=== PATIENT | female | born 1950 | race Caucasian/White ===

== ENCOUNTER 2024-08-03 01:15 | Emergency (ER) | payer MEDICARE, SELFPAY ==
[2024-08-03] VITALS (10 sets, daily range): BP systolic 141–163; BP diastolic 68–82; PULSE 75–89; RESP 16–18; TEMP 36.7–36.9; O2SAT 92–99; BMI 31.3; BMI 33.3
--- NOTE | 2024-08-03 01:17 | CT_ITS ---
PROCEDURE INFORMATION: Exam: CT Head Without Contrast Exam date and time: 08/03/2024 1:31 AM Age: 74 years old Clinical indication: Injury or trauma; Additional info: Fall TECHNIQUE: Imaging protocol: Computed tomography of the head without contrast. Radiation optimization: All CT scans at this facility use at least one of these dose optimization techniques: automated exposure control; mA and/or kV adjustment per patient size (includes targeted exams where dose is matched to clinical indication); or iterative reconstruction. COMPARISON: No relevant prior studies available. FINDINGS: Brain: Moderate chronic brain volume loss and chronic small vessel ischemic changes. Cerebral ventricles: No ventriculomegaly. Paranasal sinuses: Visualized sinuses are unremarkable. No fluid levels. Mastoid air cells: Visualized mastoid air cells are well aerated. Orbital cavities: Status post bilateral cataract surgery. Bones: Unremarkable. No acute fracture. Soft tissues: Unremarkable. IMPRESSION: No acute intracranial findings.
--- NOTE | 2024-08-03 01:25 | CT_ITS ---
PROCEDURE INFORMATION: Exam: CT Cervical Spine Without Contrast Exam date and time: 08/03/2024 1:33 AM Age: 74 years old Clinical indication: Injury or trauma; Additional info: Trauma, critical injury suspected TECHNIQUE: Imaging protocol: Computed tomography of the cervical spine without contrast. Radiation optimization: All CT scans at this facility use at least one of these dose optimization techniques: automated exposure control; mA and/or kV adjustment per patient size (includes targeted exams where dose is matched to clinical indication); or iterative reconstruction. COMPARISON: CT CERVICAL SPINE WO CON 03/08/2024 01:33 FINDINGS: Bones: Straightening of the curvature of the cervical spine is likely positional. Moderate bilateral neural foraminal stenosis at C6-C7. Moderate left neural foraminal stenosis at C4-C5. Patient motion artifact limits evaluation for nondisplaced fractures. Multilevel degenerative changes of the cervical spine producing multiple levels of mild spinal canal stenosis. Salivary glands: Left parotid gland calcifications. Lungs: Lung apices are normal. Soft tissues: Unremarkable. IMPRESSION: Patient motion artifact limits evaluation for nondisplaced fractures. Within the limitations of the study, no acute fracture or malalignment the cervical spine.
--- NOTE | 2024-08-03 01:25 | XR_ITS ---
PROCEDURE INFORMATION: Exam: XR Chest Exam date and time: 08/03/2024 1:39 AM Age: 74 years old Clinical indication: Injury or trauma; Fall; Blunt trauma (contusions or hematomas) TECHNIQUE: Imaging protocol: Radiologic exam of the chest. Views: 1 view. COMPARISON: CT THORACIC SPINE WO CON 03/08/2024 01:35 FINDINGS: Lungs: Mild scarring and atelectasis in the lower lungs. Pleural spaces: Unremarkable. No pleural effusion. No pneumothorax. Heart/Mediastinum: Unremarkable. No cardiomegaly. Bones/joints: Unremarkable. IMPRESSION: No acute intrathoracic organ injury.
--- NOTE | 2024-08-03 01:25 | CT_ITS ---
PROCEDURE INFORMATION: Exam: CT Thoracic Spine Without Contrast Exam date and time: 08/03/2024 1:35 AM Age: 74 years old Clinical indication: Injury or trauma; Additional info: Trauma, critical injury suspected TECHNIQUE: Imaging protocol: Computed tomography of the thoracic spine without contrast. Radiation optimization: All CT scans at this facility use at least one of these dose optimization techniques: automated exposure control; mA and/or kV adjustment per patient size (includes targeted exams where dose is matched to clinical indication); or iterative reconstruction. COMPARISON: CT CERVICAL SPINE WO CON 03/08/2024 01:33 FINDINGS: Bones/joints: Old right 1st rib fracture. Soft tissues: Unremarkable. Vasculature: The aorta demonstrates moderate to severe atherosclerotic disease. Lymph nodes: Intrafissural lymph node in the right major fissure image 77 series 3. Lungs: Mild scarring and atelectasis in the lower lungs. Heart: Mitral valve calcifications. Other findings: Stigmata of old granulomatous disease. Please see separate report for CT chest. Small hiatal hernia. IMPRESSION: No acute fracture or malalignment of the thoracic spine.
--- NOTE | 2024-08-03 01:25 | CT_ITS ---
PROCEDURE INFORMATION: Exam: CT Lumbar Spine Without Contrast Exam date and time: 08/03/2024 1:39 AM Age: 74 years old Clinical indication: Injury or trauma; Additional info: Trauma, critical injury suspected TECHNIQUE: Imaging protocol: Computed tomography of the lumbar spine without contrast. Radiation optimization: All CT scans at this facility use at least one of these dose optimization techniques: automated exposure control; mA and/or kV adjustment per patient size (includes targeted exams where dose is matched to clinical indication); or iterative reconstruction. COMPARISON: CT THORACIC SPINE WO CON 03/08/2024 01:35 FINDINGS: Bones/joints: The posterior fusion of L2-L5. The hardware appears intact. There is an acute, mildly displaced fracture of the anterior cortex of L3 vertebral body. Acute, minimally displaced fracture of the anterior cortex of L4 vertebral body. Multilevel degenerative changes of the lumbar spine producing multiple levels of mild and moderate spinal canal stenosis. Vertically oriented L5 fracture is most likely chronic. Stomach and bowel: Moderate amount of stool in the colon. Mild moderate small bowel feces suggesting slow motility. Urinary bladder: Gas in the urinary bladder. Vasculature: The arteries demonstrate moderate atherosclerotic disease. Soft tissues: Unremarkable. IMPRESSION: 1. There is an acute, mildly displaced fracture of the anterior cortex of L3 vertebral body. 2. Acute, minimally displaced fracture of the anterior cortex of L4 vertebral body. 3. Gas in the urinary bladder. Please exclude infection. 4. Moderate amount of stool in the colon.
--- NOTE | 2024-08-03 01:26 | CT_ITS ---
PROCEDURE INFORMATION: Exam: CT Pelvis Without Contrast, Skeleton Exam date and time: 08/03/2024 1:42 AM Age: 74 years old Clinical indication: Injury or trauma; Additional info: Fall TECHNIQUE: Imaging protocol: Computed tomography of the pelvis without contrast. Exam focused on the skeleton. Radiation optimization: All CT scans at this facility use at least one of these dose optimization techniques: automated exposure control; mA and/or kV adjustment per patient size (includes targeted exams where dose is matched to clinical indication); or iterative reconstruction. COMPARISON: CT LUMBAR SPINE WO CON 03/08/2024 01:39 FINDINGS: Tubes, catheters and devices: Urinary bladder is catheterized. Intestine: Moderate amount of stool in the colon. [id number] small bowel feces. Vasculature: The arteries demonstrate mild atherosclerotic disease. Bones/joints: No acute fracture or dislocation. Left femoral bone island. Soft tissues: Small fat containing umbilical and paraumbilical hernias. IMPRESSION: 1. No acute fracture or dislocation. 2. Urinary bladder is catheterized. Please exclude infection clinically.
[2024-08-03 02:19] LABS: Hemoglobin 12.7 g/dL (12.2-16.2); Mean Corpuscular Hemoglobin 30.2 pg (27.0-31.2); Mean Corpuscular Volume 90.3 fl (81-99); Red Blood Count 4.21 M/mm3 (4.20-5.40); White Blood Count 6.3 K/mm3 (4.8-10.8)
[2024-08-03 02:20] LABS: Basophils % 0.3 % (0.1-2.0); Eosinophils # 0.1 K/mm3 (0.0-0.4); Eosinophils % 1.6 % (0.1-12.0); Lymphocytes # 1.8 K/mm3 (0.7-4.5); Lymphocytes % 29.3 % (10-50); Mean Corpuscular HGB Conc 33.4 g/dL (31.8-35.4); Mean Platelet Volume 9.8 fl (7.4-10.4); Monocytes # 0.3 K/mm3 (0.1-1.0); Monocytes % 4.5 % (1.7-9.3); Platelet Count 283 K/mm3 (142-424); Red Cell Distribution Width 14.3 % (11.5-17.5)
[2024-08-03 02:21] LABS: Alanine Aminotransferase 26 U/L (12-78); Albumin Level 4.3 g/dl (3.5-5.0); Albumin/Globulin Ratio 1.3 (1.1-1.8); Alkaline Phosphatase 104 U/L (38-126); Anion Gap 10.2 mEq/L (5-15); Aspartate Amino Transferase 38 U/L (14-36); Bilirubin,Total 0.8 mg/dl (0.2-1.3); Blood Urea Nitrogen 18 mg/dl (7-17); Calcium 9.8 mg/dl (8.4-10.2); Carbon Dioxide 36 mmol/L (22.0-30.0); Chloride 93 mmol/L (98-107); Creatinine Clearance Estimated 68 mL/min (50-200); Estimated Glomerular Filt Rate 61 ml/min (>60); GFR (African American) 74 ML/MIN (>60); Globulin 3.3 g/dL (1.3-3.2); Glucose 101 mg/dl (74-100); Potassium 3.2 mmoL/L (3.5-5.1); Sodium 136 mmol/L (136-145); Total Protein,Serum 7.6 g/dl (6.3-8.2)
--- NOTE | 2024-08-03 02:29 | PC.NURSE ---
Pay[place] exchanged with Yael Mathews RN. Cath urine sample sent to lab at this time. Patient tolerated well.
[2024-08-03 02:30] LABS: Microscopic, Urine URINE MICROSCOPIC (MICROSCOPIC)
[2024-08-03 02:32] LABS: Appearance,Urine CLEAR (Clear); Bilirubin,Urine Negative (Negative); Blood, Urine Negative (Negative); Color,Urine YELLOW (Yellow); Glucose,Urine (UA) Negative (Negative); Ketones,Urine Negative (Negative); Leukocyte Esterase,Urine 1+ (Negative); Nitrate,Urine Negative (Negative); PH,Urine 8.5 (5.0-8.5); Protein,Urine Negative (Negative); Urobilinogen,Urine 0.2 EU/dl (0.2)
[2024-08-03 02:50] LABS: Bacteria,Urine 1+ /lpf; WBC,Urine 20-50 #/hpf (0-3)
--- NOTE | 2024-08-03 03:39 | [facility].EDGENADL ---
Discharge Plan Disposition Patient Disposition: Xfer Short-Term Hosp Condition: Good Referrals Follow up/Referrals: Fortino Barrera MD [Primary Care Provider] - See instructions Clinical Impressions Clinical Impression: Closed L3 vertebral fracture, Closed L4 vertebral fracture, Fall, Cervical spine pain, UTI (urinary tract infection) Stand Alone Forms Stand Alone Forms: Transfer Record - ED Print Language Print Language: Japanese Discharge ED Provider: Samantha Garg General Adult HPI General Chief complaint: Fall Stated complaint: FALL Time Seen by Provider: 08/03/24 01:25 Mode of Arrival: EMS Source of Information: Patient and EMS Limitations: No Limitations Description of Symptoms (Recalled from ER Triage Doc. by RN): Patient to ED via [facility] from [facility] with complaints of altered mental status after fall that happened approx 08/02/24 AM. Unknown time of fall. Patient and staff deny LOC. Patient complains of neck pain at this time. Placed in c collar. Patient recently dx with UTI to which she finished abx course prescribed. History of Present Illness HPI narrative: 74-year-old female presents from [facility] for concerns of altered mental status and fall. Patient's fall happened early on 08/02. Patient and staff deny loss of consciousness. She states she developed worsening neck pain and headache. Facility reported that patient seemed altered and more confused this evening which was the reason they sent her to the ER. EMS reports no medications given and route and that patient was behaving appropriately with them with only transient slight confusion. Family presented to bedside and provided additional history. In early June patient had a cage placed on her lumbar spine from L1-L5. This was done at [facility]. Patient is to wear a back brace when she is not laying down. They states since that time patient has had difficulty with urinary retention so she has had a chronic Cain. She had recent UTI and completed a course of antibiotics. Family is concerned she could be developing UTI again. They state they were concerned tonight when she continued to complain of neck pain and headache. They also reports she has had other falls earlier this week. Patient does not complain of pain in the chest, abdomen, arms or legs. She has no new numbness, tingling, or weakness. No dizziness, she reports no headache at this time. Related Data Allergies Allergy/AdvReac Type Severity Reaction Status Date / Time linaclotide (From Linzess) AdvReac Unknown Verified 08/03/24 02:02 allergy reaction meloxicam AdvReac Unknown Verified 08/03/24 02:02 allergy reaction PFSH [facility] Disclaimer: The information contained in this section may have been updated after the patient was seen, as this information can be updated by other users. Social History Smoking Status: Never smoker alcohol intake: never current occupational status: retired Travel in the last 8 weeks: None ROS Obtained: Yes Systems reviewed as appropriate & no additional complaints except as documented Per HPI Physical Exam General General appearance: alert and in no apparent distress Head Head exam: atraumatic and normocephalic Eye Eye exam: Present PERRL and EOMI; Absent conjunctival redness ENT ENT exam: Present mucous membranes moist Neck Neck exam: Present normal inspection, trachea midline and tenderness (Tenderness of the midline cervical spine as well as the paraspinal muscles); Absent full ROM (Pain with range of motion, c-collar placed) or lymphadenopathy Chest Chest inspection: Present symmetric chest wall rise; Absent tenderness Respiratory Respiratory exam: Present normal lung sounds bilaterally; Absent respiratory distress, wheezes or stridor Cardiovascular Cardiovascular exam: Present regular rate and normal rhythm Abdominal Exam Abdominal exam: Present soft; Absent distention or tenderness Extremities Exam Extremities exam: Present full ROM and normal capillary refill; Absent tenderness or edema Back Exam Back exam: Absent tenderness (No tenderness of the thoracic or lumbar spine), paraspinal tenderness or vertebral tenderness Neurological Exam Neurological exam: Present alert, oriented X3 (Oriented to self, location, year, answering questions appropriately) and CN II-XII intact; Absent motor sensory deficit Psychiatric Psychiatric exam: Present normal affect and normal mood Skin Skin exam: Present warm and dry Medical Decision Making Medical Records Screening: Per USPSTF and CDC recommendations, given the prevalence of disease in our region, it is our hospital?s policy to screen for HIV and viral Hepatitis for all patients aged 18 and over and those with ongoing risk factors. Fausto Inquiry Pt receiving controlled substance: No Vital Signs: 08/03/24 01:15 08/03/24 01:57 08/03/24 02:00 Temperature 98.5 F Temperature Source Oral Pulse Rate 75 76 Pulse Rate [Right] 76 Respiratory Rate 17 Blood Pressure 145/82 H 143/73 H Blood Pressure [Right Arm] 145/82 H Blood Pressure Mean 103 96 Blood Pressure Mean [Right Arm] 103 Blood Pressure Source [Right Arm] Automatic Cuff Blood Pressure Position [Right Arm] Supine 02 Sat by Pulse Oximetry 98 99 99 Oxygen Delivery Method Room Air Room Air Room Air 08/03/24 02:30 Temperature Temperature Source Pulse Rate 77 Pulse Rate [Right] Respiratory Rate Blood Pressure 163/75 H Blood Pressure [Right Arm] Blood Pressure Mean Blood Pressure Mean [Right Arm] Blood Pressure Source [Right Arm] Blood Pressure Position [Right Arm] 02 Sat by Pulse Oximetry 99 Oxygen Delivery Method Lab Data Lab Results 08/03/24 01:21: WBC 6.3, RBC 4.21, Hgb 12.7, Hct 38.0, MCV 90.3, MCH 30.2, MCHC 33.4, RDW 14.3, Plt Count 283, MPV 9.8, Neut % (Auto) 64.0, Lymph % (Auto) 29.3, [place] % (Auto) 4.5, Eos % (Auto) 1.6, Baso % (Auto) 0.3, Neut # (Auto) 4.0, Lymph # (Auto) 1.8, [place] # (Auto) 0.3, Eos # (Auto) 0.1, Baso # (Auto) 0.0, Sodium 136, Potassium 3.2 L, Chloride 93 L, Carbon Dioxide 36 H, Anion Gap 10.2, BUN 18 H, Creatinine 0.90, Estimated Creat Clear 68, Estimated GFR 61, Est GFR ( Amer) 74, Glucose 101 H, Calcium 9.8, Total Bilirubin 0.8, AST 38 H, ALT 26, Alkaline Phosphatase 104, Total Protein 7.6, Albumin 4.3, Globulin 3.3 H, Albumin/Globulin Ratio 1.3 08/03/24 02:20: Urine Color Yellow, Urine Appearance Clear, Urine pH 8.5, Ur Specific [place] 1.010, Urine Protein Negative, Urine Glucose (UA) Negative, Urine Ketones Negative, Urine Blood Negative, Urine Nitrate Negative, Urine Bilirubin Negative, Urine Urobilinogen 0.2, Ur Leukocyte Esterase 1+ A, Urine WBC 20-50, Ur Squamous Epith Cells 3-5, Urine Bacteria 1+ 08/03/24 01:21 08/03/24 01:21 Orders (Tests/Meds): ED MEDICATIONS Generic Name Dose Route Start Last Admin Trade Name Freq PRN Reason Stop Dose Admin Ceftriaxone Sodium 1 gm/ 50 mls @ 100 mls/hr 08/03/24 03:30 08/03/24 03:45 Sodium Chloride IV 08/13/24 03:29 100 mls/hr Q24H RISHI Administration ORDERS Category Date Time Status CT bony pelvis Stat Cat Scan 08/03/24 01:[address] cervical spine wo con Stat Cat Scan 08/03/24 01:[address] head/brain wo con Stat Cat Scan 08/03/24 01:[address] lumbar spine wo con Stat Cat Scan 08/03/24 01:[address] thoracic spine wo con Stat Cat Scan 08/03/24 01:25 Completed CXR --portable [XR chest portable] Stat Exams 08/03/24 01:25 Completed CBC w/Auto Diff [Complete Blood Count Auto Diff] Stat Lab 08/03/24 01:21 Completed CMP [Comprehensive Metabolic Panel] Stat Lab 08/03/24 01:21 Completed Urinalysis and Microscopic Stat Lab 08/03/24 02:20 Completed Blood Culture Stat Micro 08/03/24 03:35 Received Urine Culture Stat Micro 08/03/24 02:20 Received Medical Decision Narrative: In summary, this 74-year-old female with comorbidities described in the HPI with recent back surgery presents to the emergency department today with neck pain, headache, concern of altered mental after recent fall. On initial evaluation patient is hemodynamically stable, afebrile, GCS 15, NIH 0, exam is notable for tenderness of the cervical spine but no other obvious injuries, no other traumatic findings on exam. Differential diagnosis includes but is not limited to urinary tract infection, leukocytosis, fracture of the spine, hardware failure, intracranial bleed, skull fracture, electrolyte abnormality, dehydration. Based on these concerns, I ordered serum labs, noncontrast imaging of the head and spine. Labs personally reviewed demonstrate Normal CBC, CMP with mild hypokalemia, UA positive for findings of infection with numerous WBC, bacteria present, nitrite negative. Patient being treated with Rocephin. XR personally interpreted demonstrates no acute intrathoracic abnormality, see radiology read for final interpretation. CT imaging personally interpreted demonstrate no acute intracranial bleed, no skull fracture, I do not appreciate C-spine injury. See radiology reads for full interpretations. Radiology reads of the thoracic and lumbar spine note the hardware appears intact in the lumbar spine but there appear to be acute mildly displaced fracture of the anterior L3 and L4. No previous imaging comparison available. Patient continues having neck pain and I am not able to clear her c-collar despite negative imaging. I am concerned about the fractures identified in her low spine with her recent surgery. I contacted [facility] and discussed the patient with spine team Dr. Talbot. He recommended transfer and admission to their facility for further evaluation. I spoke with Dr. Scruggs with their hospitalist service. We reviewed labs, imaging, and recommendations from the spine service. Patient was accepted for [facility] bed. Patient will be transferred via S ambulance after bed assignment is completed and transportation becomes available. At this time patient continues to rest relatively comfortably. Family is agreeable with the plan. She has no neurologic deficits. Patient transferred in stable condition with c-collar in place, no neurologic deficits, Cain in place. Critical Care Critical Care Time Critical Care Time: No
[2024-08-03] MEDS: CEFTRIAXONE 1 GM 1 GM in 0.9 % SODIUM CHLORIDE 50 ML IV (03:45)
--- NOTE | 2024-08-03 04:09 | PC.NURSE ---
call to [facility] for transfer to their facility
--- NOTE | 2024-08-03 04:26 | PC.NURSE ---
Dr. Talbot on phone with ED MD at this time
--- NOTE | 2024-08-03 04:58 | PC.NURSE ---
EMS notified that patient will need to be transferred to [facility] when a truck is available
--- NOTE | 2024-08-03 06:18 | PC.NURSE ---
Spoke with RN at [facility] to report that patient transfer to facility is still pending at this time [place]. TRN informed facility that patient will arrive after shift change to which facility requests report to be called after shift change. Information relayed to charge nurse, and MD marquez.
--- NOTE | 2024-08-03 07:18 | PC.NURSE ---
rounded on pt at this time. family at bedside. call light within reach. everyone resting peacefully.
--- NOTE | 2024-08-03 08:05 | PC.NURSE ---
[facility] NOTIFIED OF TRANSFER TO [facility]
--- NOTE | 2024-08-05 09:05 | PC.NURSE ---
URINE CULTURE FAXED TO [facility] [phone]
== END 2024-08-03 09:59 | disposition short-term general hospital (02) ==
PROVIDERS: Emergency Provider Emergency Medicine; PCP Internal Medicine
DX: N39.0 Urinary tract infection, site not specified (principal); S32.049A Unspecified fracture of fourth lumbar vertebra, initial encounter for closed fracture; S32.039A Unspecified fracture of third lumbar vertebra, initial encounter for closed fracture; R41.82 Altered mental status, unspecified; M54.2 Cervicalgia; R51.9 Headache, unspecified; W19.XXXA Unspecified fall, initial encounter
CPT/HCPCS: 70450; 71045; 72125; 72128; 72131; 72192; 80053; 81001; 85025; 87040; 87086; 87088; 96374; 99285; J0696